=== PATIENT | male | born 1950 | race Caucasian/White ===

== ENCOUNTER 2018-07-09 08:43 | Day surgery (SDC) | payer OTHER ==
[2018-07-09] MEDS ORDERED: LACTATED RINGERS 1,000 ML IV ONE (09:15)
[2018-07-09] MEDS ORDERED: fentaNYL 250 MCG/5 ML VIAL IVP ONE (10:45)
[2018-07-09] MEDS ORDERED: MIDAZOLAM 2 MG/2 ML VIAL IVP ONE (10:45)
[2018-07-09 11:43] VITALS: BP 102/78
== END 2018-07-09 08:44 | disposition home or self-care (01) ==
LOC: SDS 08:43
PROVIDERS: ATTEND Surgery
PROC: 0DBP8ZZ Excision of Rectum, Via Natural or Artificial Opening Endoscopic (ICD-10-PCS; principal; 2018-07-09 09:45)
DX: Z12.11 Encounter for screening for malignant neoplasm of colon (principal); K62.1 Rectal polyp; K64.8 Other hemorrhoids
CPT/HCPCS: 45380; J3010; J7120

== ENCOUNTER 2023-08-28 12:06 | Outpatient (CLI) | payer OTHER, MEDICARE | END 2023-08-28 23:59 | disposition critical access hospital (66) | LOC: EMS 12:06 | DX: Z04.1 Encounter for examination and observation following transport accident (principal); R40.4 Transient alteration of awareness; M54.6 Pain in thoracic spine; R07.1 Chest pain on breathing | CPT/HCPCS: A0425; A0429 ==

== ENCOUNTER 2023-08-28 12:43 | Emergency (ER) | payer OTHER, MEDICARE ==
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
[2023-08-28 13:09] LABS: BASOPHILS # (AUTO) 0.1 10^3/uL (0.0-0.1); BASOPHILS % (AUTO) 0.6 %; EOSINOPHILS # (AUTO) 0.2 10^3/uL (0.0-0.7); EOSINOPHILS % (AUTO) 1.5 %; HCT - HEMATOCRIT 53.3 % (42.0-52.0); HGB - HEMOGLOBIN 18.1 g/dL (14.0-18.0); LYMPHOCYTES # (AUTO) 1.4 10^3/uL (1.5-3.5); LYMPHOCYTES % (AUTO) 9.9 %; MEAN CORPUSCULAR HEMOGLOBIN 30.9 pg (27.0-31.0); MEAN CORPUSCULAR VOLUME 91.1 fL (80.0-94.0); MEAN PLATELET VOLUME 9.2 fL (7.4-11.4); MONOCYTES # (AUTO) 0.7 10^3/uL (0.0-1.0); NEUTROPHILS # (AUTO) 11.7 10^3/uL (1.5-6.6); NEUTROPHILS % (AUTO) 81.7 %; PLT - PLATELET COUNT 180 10^3/uL (130-450); RED BLOOD COUNT 5.85 10^6/uL (4.70-6.10); WHITE BLOOD COUNT 14.3 x10^3/uL (4.8-10.8)
[2023-08-28] MEDS: fentaNYL 100 MCG/2 ML VIAL IVP STA (13:11)
[2023-08-28] MEDS: SODIUM CHLORIDE 0.9% 1,000 ML IV STA ×2 (13:12→18:37)
[2023-08-28 13:22] LABS: ALBUMIN 4.3 g/dL (3.2-5.5); ALBUMIN/GLOBULIN RATIO 1.7 (1.0-2.2); CALCIUM 9.2 mg/dL (8.5-10.3); CREATININE 1.1 mg/dL (0.6-1.3); POTASSIUM 4.5 mmol/L (3.5-4.5); TOTAL PROTEIN 6.8 g/dL (6.4-8.9)
[2023-08-28] MEDS: iohexoL-300 100 ML VIAL IVP ONE (16:16)
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
[2023-08-28] MEDS: KETOROLAC 30 MG/ML VIAL IVP STA (18:36)
--- NOTE | 2023-08-28 21:30 | CT Report ---
PROCEDURE: LOWER EXTREMITY WO - LT INDICATIONS: unable to bear weight; negative xr; r/o fx TECHNIQUE: Noncontrast 3-mm axial sections acquired from the distal tibial shaft to the talar dome, with coronal and sagittal reformats. For radiation dose reduction, the following was used: automated exposure c ontrol, adjustment of mA and/or kV according to patient size. COMPARISON: None. FINDINGS: Image quality: Excellent. Bones: Minimally displaced fracture of the left inferior pubic ramus. No second fracture site identi fied. No diastases of the pubic symphysis or sacroiliac joints. Mildly comminuted fracture through the proximal fibula. Soft tissues: Moderate knee joint effusion. Impression: Minimally displaced fracture of the left inferior pubic ramus. Mildly comminuted fracture of the proximal fibula. Reviewed by: Luis Robert on 08/28/2023 9:29 PM PST Approved by: Luis Robert on 08/28/2023 9:29 PM [facility] Station ID: [id number]
[2023-08-28 22:56] VITALS: BP 117/69; O2SAT 96
== END 2023-08-28 22:10 | disposition home or self-care (01) ==
LOC: EDUNIT# → ED 12:43
DX: S06.0X1A Concussion with loss of consciousness of 30 minutes or less, initial encounter (principal); S42.101A Fracture of unspecified part of scapula, right shoulder, initial encounter for closed fracture; S32.592A Other specified fracture of left pubis, initial encounter for closed fracture; S82.832A Other fracture of upper and lower end of left fibula, initial encounter for closed fracture; S20.219A Contusion of unspecified front wall of thorax, initial encounter; S50.312A Abrasion of left elbow, initial encounter; V49.40XA Driver injured in collision with unspecified motor vehicles in traffic accident, initial encounter; Y92.411 Interstate highway as the place of occurrence of the external cause
CPT/HCPCS: 36415; 80053; 83690; 85025; 96374; 96375; 99284

== ENCOUNTER 2023-09-04 14:18 | Outpatient (CLI) | payer OTHER ==
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
== END 2023-09-04 14:19 | disposition home or self-care (01) ==
LOC: DI.S 14:18
PROVIDERS: ATTEND Registered Nurse
DX: S39.92XA Unspecified injury of lower back, initial encounter (principal); M48.56XA Collapsed vertebra, not elsewhere classified, lumbar region, initial encounter for fracture; M48.061 Spinal stenosis, lumbar region without neurogenic claudication; M47.816 Spondylosis without myelopathy or radiculopathy, lumbar region; M51.36 Other intervertebral disc degeneration, lumbar region; M51.37 Other intervertebral disc degeneration, lumbosacral region; M48.54XA Collapsed vertebra, not elsewhere classified, thoracic region, initial encounter for fracture

== ENCOUNTER 2023-09-05 08:00 | Outpatient (CLI) | payer OTHER, MEDICARE ==
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
== END 2023-09-05 23:59 | disposition home or self-care (01) ==
LOC: DI.WOS 08:00
PROVIDERS: ATTEND Orthopaedic Surgery
DX: S82.832D Other fracture of upper and lower end of left fibula, subsequent encounter for closed fracture with routine healing (principal); S32.592A Other specified fracture of left pubis, initial encounter for closed fracture

== ENCOUNTER 2023-10-23 08:00 | Outpatient (CLI) | payer OTHER, MEDICARE ==
--- NOTE | 2023-10-23 13:36 | XRAY Report ---
PROCEDURE: Knee 3 View LT INDICATIONS: LEFT PROXIMAL FIB FRACTURE TECHNIQUE: 3 views of the knee(s) were acquired. COMPARISON: 09/05/2023 FINDINGS: Bones: A comminuted and slightly impacted proximal fibular fracture is redemonstrated. A few of the fracture planes are still seen, however there is bridging callus now present. Proximal tibiofibular r elationship remains normal. Mild to moderate medial and lateral compartment joint space loss with mil d osteophytes. Soft tissues: No knee joint effusion. No suspicious soft tissue calcifications or masses. IMPRESSION: 1. Continued healing of comminuted proximal fibular fracture. 2. Background osteoarthritic change. Reviewed by: Divya Lara MD on 10/23/2023 1:35 PM PST Approved by: Divya Lara MD on 10/23/2023 1:35 PM PST Station ID: [id number]
--- NOTE | 2023-10-23 14:23 | XRAY Report ---
PROCEDURE: Pelvis 3 View INDICATIONS: LEFT PUBIC FRACTURE TECHNIQUE: 3 view(s) of the pelvis acquired. COMPARISON: 09/05/2023 FINDINGS: Bones: There is a small amount of hypertrophic bridging callus surrounding the previous left inferio r pubic ramus fracture. Bone alignment remains normal. There are mild degenerative changes in the rig ht femoral acetabular joint. Soft tissues: Visualized bowel gas pattern is normal. No suspicious soft tissue calcifications. IMPRESSION: There is visible healing of a nondisplaced left inferior pubic ramus fracture. Reviewed by: Divya Lara MD on 10/23/2023 2:22 PM PST Approved by: Divya Lara MD on 10/23/2023 2:22 PM PST Station ID: [id number]
== END 2023-10-23 23:59 | disposition home or self-care (01) ==
LOC: DI.WOS 08:00
PROVIDERS: ATTEND Orthopaedic Surgery
DX: S82.832D Other fracture of upper and lower end of left fibula, subsequent encounter for closed fracture with routine healing (principal); M17.12 Unilateral primary osteoarthritis, left knee; S32.592D Other specified fracture of left pubis, subsequent encounter for fracture with routine healing